=== PATIENT | male | born 1955 | race Caucasian/White ===

== ENCOUNTER 2019-11-16 13:10 | Emergency (ER) | payer MEDICARE, BC ==
[~2019-11-16] VITALS: Ht 188 cm; Wt 108.9 kg
[~2019-11-16 13:10] MED LIST: ATOR80 PO; Aspirin EC81 MG PO; GABAPENTIN600 MG PO; LEVEMIR FL100 UNIT/1 SC; METAXALONE800 M1 PO; Novolin R100 UNIT/M; PANTOPRAZOLE SO40 M2 PO; Pravachol40 MG PO
[2019-11-16] MEDS ORDERED: ATOR40TA PO (13:38)
[2019-11-16] MEDS ORDERED: Depo-Testos200 MG/ML IM (13:39)
[2019-11-16] MEDS ORDERED: DULO60 PO (13:39)
[2019-11-16] MEDS ORDERED: TIZA4 PO (13:39)
[2019-11-16 13:40] LABS: BASOPHILS ABSOLUTE AUTO 0.03 K/mm3 (0.00-0.23); BASOPHILS PERCENT AUTO 0 % (0-2); EOSINOPHILS ABSOLUTE AUTO 0.09 K/mm3 (0.00-0.68); EOSINOPHILS PERCENT AUTO 1 % (0-6); Hematocrit 44.4 % (37.0-53.0); Hemoglobin 13.8 g/dL (13.5-17.5); IMMATURE GRAN ABSOLUTE AUTO 0.01 K/mm3 (0.00-0.10); IMMATURE GRAN PERCENT AUTO 0 % (0-1); LYMPHOCYTES ABSOLUTE AUTO 1.88 K/mm3 (0.84-5.20); LYMPHOCYTES PERCENT AUTO 27 % (21-46); MONOCYTES ABSOLUTE AUTO 0.41 K/mm3 (0.16-1.47); MONOCYTES PERCENT AUTO 6 % (4-13); Mean Corpuscular HGB Conc 31.1 g/dL (31.5-36.5); Mean Corpuscular Volume 87 fL (80-100); Mean Platelet Volume 12.4 fL (9.1-12.4); NEUTROPHILS ABSOLUTE AUTO 4.52 K/mm3 (1.96-9.15); NEUTROPHILS PERCENT AUTO 65 % (41-73); Platelet Count 177 K/mm3 (150-400); RDW Coefficient Variation 13.4 % (11.7-14.2); RDW Standard Deviation 41.7 fL (35.1-46.3); Red Blood Cell Count 5.12 M/mm3 (4.30-5.90); White Blood Cell Count 6.94 K/mm3 (4.00-11.30)
[2019-11-16] MEDS ORDERED: TADA10TA PO (13:40)
[2019-11-16] MEDS ORDERED: NOVOLOG FL100 UNIT/1 SC (13:41)
[2019-11-16 13:54] LABS: International Normalized Ratio 1.04; Prothrombin Time Results 11.1 Sec (9.7-11.5)
[2019-11-16 14:03] LABS: Alanine Aminotransfer (ALT/SGP 23 U/L (12-78); Albumin, Blood 3.6 g/dL (3.4-5.0); Albumin/Globulin Ratio 0.9 (0.8-1.8); Alk Phos 85 U/L (50-136); Anion Gap 4 mmol/L (6-16); Aspartate Aminotrans (AST/SGOT 15 U/L (12-37); Bilirubin, Total 0.3 mg/dL (0.1-1.0); Blood Urea Nitrogen 15 mg/dL (8-24); Bun/Creatinine Ratio 13.4 (12.0-20.0); CO2, Blood 28 mmol/L (21-32); Calcium, Blood 9.3 mg/dL (8.5-10.1); Chloride, Blood 107 mmol/L (98-108); Creatinine, Blood 1.12 mg/dL (0.60-1.20); Globulin, Blood 3.9 g/dL (2.2-4.0); Glomerular Filtration Rate >60 (60-); Glucose, Blood 254 mg/dL (70-99); Potassium, Blood 4.8 mmol/L (3.5-5.5); Sodium, Blood 139 mmol/L (136-145); Total Protein, Blood 7.5 g/dL (6.4-8.2)
[2019-11-16] MEDS ORDERED: Plavix75 MG PO (15:48)
== END 2019-11-16 16:00 | disposition home or self-care (01) ==
LOC: ER 13:10
PROVIDERS: Emergency Medicine
DX: G45.9 Transient cerebral ischemic attack, unspecified (principal); E11.9 Type 2 diabetes mellitus without complications; I10 Essential (primary) hypertension; K21.9 Gastro-esophageal reflux disease without esophagitis; G47.30 Sleep apnea, unspecified; Z88.6 Allergy status to analgesic agent; Z79.899 Other long term (current) drug therapy; Z79.4 Long term (current) use of insulin; Z79.82 Long term (current) use of aspirin
CPT/HCPCS: 36415; 70450; 80053; 85025; 85610; 93005; 93010; 99285-25; A9270-GY

== ENCOUNTER 2019-12-27 12:25 | Emergency (ER) | payer MEDICARE, BC ==
[~2019-12-27] VITALS: Ht 188 cm; Wt 104.3 kg
[~2019-12-27 12:25] MED LIST changes: +ATOR40TA PO; +DULO60 PO; +Depo-Testos200 MG/ML IM; +NOVOLOG FL100 UNIT/1 SC; +Plavix75 MG PO; +TADA10TA PO; +TIZA4 PO
[2019-12-27 13:32] LABS: BASOPHILS ABSOLUTE AUTO 0.03 K/mm3 (0.00-0.23); BASOPHILS PERCENT AUTO 0 % (0-2); EOSINOPHILS ABSOLUTE AUTO 0.05 K/mm3 (0.00-0.68); EOSINOPHILS PERCENT AUTO 1 % (0-6); Hematocrit 46.2 % (37.0-53.0); Hemoglobin 14.5 g/dL (13.5-17.5); IMMATURE GRAN ABSOLUTE AUTO 0.04 K/mm3 (0.00-0.10); IMMATURE GRAN PERCENT AUTO 0 % (0-1); LYMPHOCYTES ABSOLUTE AUTO 1.45 K/mm3 (0.84-5.20); LYMPHOCYTES PERCENT AUTO 16 % (21-46); MONOCYTES ABSOLUTE AUTO 0.53 K/mm3 (0.16-1.47); MONOCYTES PERCENT AUTO 6 % (4-13); Mean Corpuscular HGB 26.4 pg (26.0-34.0); Mean Corpuscular HGB Conc 31.4 g/dL (31.5-36.5); Mean Corpuscular Volume 84 fL (80-100); Mean Platelet Volume 11.2 fL (9.1-12.4); NEUTROPHILS PERCENT AUTO 77 % (41-73); Platelet Count 233 K/mm3 (150-400); RDW Coefficient Variation 14.1 % (11.7-14.2); RDW Standard Deviation 43.1 fL (35.1-46.3); Red Blood Cell Count 5.49 M/mm3 (4.30-5.90)
[2019-12-27 13:48] LABS: International Normalized Ratio 1.01; Prothrombin Time Results 10.8 Sec (9.7-11.5)
[2019-12-27 13:53] LABS: Alanine Aminotransfer (ALT/SGP 35 U/L (12-78); Albumin, Blood 3.9 g/dL (3.4-5.0); Albumin/Globulin Ratio 0.9 (0.8-1.8); Alk Phos 100 U/L (50-136); Anion Gap 9 mmol/L (6-16); Aspartate Aminotrans (AST/SGOT 18 U/L (12-37); Bilirubin, Total 0.3 mg/dL (0.1-1.0); Blood Urea Nitrogen 18 mg/dL (8-24); Bun/Creatinine Ratio 20.2 (12.0-20.0); CO2, Blood 24 mmol/L (21-32); Calcium, Blood 9.6 mg/dL (8.5-10.1); Chloride, Blood 108 mmol/L (98-108); Creatinine, Blood 0.89 mg/dL (0.60-1.20); Globulin, Blood 4.2 g/dL (2.2-4.0); Glomerular Filtration Rate >60 (60-); Glucose, Blood 157 mg/dL (70-99); Potassium, Blood 4.8 mmol/L (3.5-5.5); Sodium, Blood 141 mmol/L (136-145); Total Protein, Blood 8.1 g/dL (6.4-8.2)
[2019-12-27] MEDS ORDERED: ACYC800 PO (16:17)
[2019-12-27] MEDS ORDERED: Valium5 MG PO (16:17)
[2019-12-27] MEDS ORDERED: ONDA4 PO (16:17)
== END 2019-12-27 16:39 | disposition home or self-care (01) ==
LOC: ER 12:25
PROVIDERS: Physician Assistant
DX: G51.0 Bell's palsy (principal); E11.9 Type 2 diabetes mellitus without complications; I10 Essential (primary) hypertension; K21.9 Gastro-esophageal reflux disease without esophagitis; Z88.6 Allergy status to analgesic agent; Z79.899 Other long term (current) drug therapy; Z79.4 Long term (current) use of insulin; Z79.82 Long term (current) use of aspirin; Z79.02 Long term (current) use of antithrombotics/antiplatelets; Z86.73 Personal history of transient ischemic attack (TIA), and cerebral infarction without residual deficits
CPT/HCPCS: 36415; 70450; 70551; 80053; 82947; 85025; 85610; 93005; 93010; 96374; 99284-25; J3360

== ENCOUNTER 2020-02-04 06:32 | Day surgery (SDC) | payer MEDICARE, BC ==
[~2020-02-04] VITALS: Wt 102.0 kg
[~2020-02-04 06:32] MED LIST changes: +ACYC800 PO; -ATOR40TA PO; -Aspirin EC81 MG PO; -DULO60 PO; -Depo-Testos200 MG/ML IM; -LEVEMIR FL100 UNIT/1 SC; -METAXALONE800 M1 PO; -NOVOLOG FL100 UNIT/1 SC; +ONDA4 PO; -PANTOPRAZOLE SO40 M2 PO; -TIZA4 PO; +Valium5 MG PO
--- NOTE | 2020-02-04 08:34 | NUR ---
FRANCO RN WITH [employer] IN ROOM WITH INSTRUCTIONS TO THE LINQ. PT S/O AT BEDSIDE. PT VERBALIZES UNDERSTANDING WRITTEN AND VERBAL ORDERS. PT IV DC'D. CATH INTACT. PRESSURE DSG IN PLACE. NADN. VSS. PT WILL DC TO HOME VIA S/O.
[2020-02-23] MEDS ORDERED: LEVEMIR FL100 UNIT/2 SC (13:15)
[2020-02-23] MEDS ORDERED: FLUT.05NI (13:17)
[2020-02-23] MEDS ORDERED: METAXALONE800 M1 PO (13:18)
[2020-02-23] MEDS ORDERED: DULO60 PO (13:19)
[2020-02-23] MEDS ORDERED: PANTOPRAZOLE SO40 M2 PO (13:19)
[2020-02-23] MEDS ORDERED: TIZA4 PO (13:20)
[2020-02-23] MEDS ORDERED: ASPI81CH PO (13:21)
[2020-02-23] MEDS ORDERED: PLAVIX75 MG PO (13:22)
[2020-02-23] MEDS ORDERED: GLUCOPHAGE1000 M1 PO (13:23)
[2020-02-23] MEDS ORDERED: PREGABALIN50 MG PO (13:23)
[2020-02-23] MEDS ORDERED: Pravachol40 MG PO (13:25)
[2020-02-23] MEDS ORDERED: Depo-Testos200 MG/ML IM (13:27)
[2020-02-23] MEDS ORDERED: NOVOLOG FL100 UNIT/3 SC (13:28)
[2020-02-24] MEDS ORDERED: AMLO10 PO (09:55)
[2020-02-24] MEDS ORDERED: CLOP75 PO (09:55)
== END 2020-02-04 22:36 | disposition home or self-care (01) ==
LOC: MHTC 06:32
DX: I63.9 Cerebral infarction, unspecified (principal); J45.909 Unspecified asthma, uncomplicated; E66.9 Obesity, unspecified; E11.9 Type 2 diabetes mellitus without complications; E78.5 Hyperlipidemia, unspecified; Z87.891 Personal history of nicotine dependence; Z79.82 Long term (current) use of aspirin; Z79.02 Long term (current) use of antithrombotics/antiplatelets; Z79.4 Long term (current) use of insulin; Z79.899 Other long term (current) drug therapy; Z68.29 Body mass index [BMI] 29.0-29.9, adult; I65.23 Occlusion and stenosis of bilateral carotid arteries; Z88.6 Allergy status to analgesic agent
CPT/HCPCS: 33285; 93308; C1764

== ENCOUNTER → 2020-10-23 | Outpatient (CLI) | payer MEDICARE, BC ==
[~2020-10-23] MED LIST changes: +AMLO10 PO; +ASPI81CH PO; +CLOP75 PO; +DULO60 PO; +Depo-Testos200 MG/ML IM; +FLUT.05NI; +GLUCOPHAGE1000 M1 PO; +LEVEMIR FL100 UNIT/2 SC; +METAXALONE800 M1 PO; +NOVOLOG FL100 UNIT/3 SC; +PANTOPRAZOLE SO40 M2 PO; +PLAVIX75 MG PO; +PREGABALIN50 MG PO; +TIZA4 PO
[2020-10-24 14:02] LABS: Stool Occult Bld Immuno 1 Negative (NEGATIVE)
== END ==
LOC: LAB 13:30 → LAB SHORT 13:30 → LAB FUT 10-12 14:15
PROVIDERS: Nurse Practitioner Family
DX: D64.9 Anemia, unspecified (principal)
CPT/HCPCS: 82274

== ENCOUNTER 2021-02-24 12:22 | Emergency (ER) | payer MEDICARE, BC ==
[~2021-02-24] VITALS: Ht 177.8 cm; Wt 99.8 kg
[2021-02-24 12:51] LABS: BASOPHILS ABSOLUTE AUTO 0.06 K/mm3 (0.00-0.23); BASOPHILS PERCENT AUTO 1 % (0-2); EOSINOPHILS ABSOLUTE AUTO 0.08 K/mm3 (0.00-0.68); EOSINOPHILS PERCENT AUTO 1 % (0-6); Hematocrit 38.1 % (37.0-53.0); Hemoglobin 12.1 g/dL (13.5-17.5); IMMATURE GRAN ABSOLUTE AUTO 0.04 K/mm3 (0.00-0.10); IMMATURE GRAN PERCENT AUTO 1 % (0-1); LYMPHOCYTES PERCENT AUTO 28 % (21-46); MONOCYTES ABSOLUTE AUTO 0.68 K/mm3 (0.16-1.47); MONOCYTES PERCENT AUTO 8 % (4-13); Mean Corpuscular HGB 28.3 pg (26.0-34.0); Mean Corpuscular HGB Conc 31.8 g/dL (31.5-36.5); Mean Corpuscular Volume 89 fL (80-100); Mean Platelet Volume 11.8 fL (9.1-12.4); NEUTROPHILS ABSOLUTE AUTO 5.11 K/mm3 (1.96-9.15); NEUTROPHILS PERCENT AUTO 62 % (41-73); Platelet Count 218 K/mm3 (150-400); RDW Coefficient Variation 14.6 % (11.7-14.2); RDW Standard Deviation 47.7 fL (35.1-46.3); Red Blood Cell Count 4.27 M/mm3 (4.30-5.90); White Blood Cell Count 8.27 K/mm3 (4.00-11.30)
[2021-02-24 13:05] LABS: Alanine Aminotransfer (ALT/SGP 25 U/L (12-78); Albumin, Blood 3.7 g/dL (3.4-5.0); Albumin/Globulin Ratio 1.1 (0.8-1.8); Alk Phos 66 U/L (50-136); Anion Gap 8 mmol/L (6-16); Aspartate Aminotrans (AST/SGOT 17 U/L (12-37); Bilirubin, Total 0.4 mg/dL (0.1-1.0); Blood Urea Nitrogen 19 mg/dL (8-24); Bun/Creatinine Ratio 20.2 (12.0-20.0); CO2, Blood 22 mmol/L (21-32); Calcium, Blood 9.2 mg/dL (8.5-10.1); Chloride, Blood 112 mmol/L (98-108); Creatinine, Blood 0.94 mg/dL (0.60-1.20); Globulin, Blood 3.4 g/dL (2.2-4.0); Glomerular Filtration Rate >60 (60-); Glucose, Blood 198 mg/dL (70-99); Magnesium, Blood 1.8 mg/dL (1.6-2.4); Potassium, Blood 4.2 mmol/L (3.5-5.5); Sodium, Blood 142 mmol/L (136-145); Total Protein, Blood 7.1 g/dL (6.4-8.2)
[2021-02-24] MEDS ORDERED: TRAZ50 PO (14:02)
[2021-02-24] MEDS ORDERED: BUDESONIDE EC3 M1 (14:03)
[2021-02-24] MEDS ORDERED: SUCRALFATE PO (14:03)
[2021-02-24] MEDS ORDERED: TIZA4 (14:04)
[2021-02-24 14:52] LABS: Source, Urine Clean Catch
[2021-02-24 15:03] LABS: Appearance, Urine Clear (Clear); Bilirubin, Urine Neg (Neg); Blood, Urine Neg (Neg); Color, Urine Yellow (P-Yellow); Glucose Qualitative, Urine 2+ (Neg); Ketones, Urine Neg (Neg); Leukocyte Esterase, Urine Neg (Neg); Nitrite, Urine Neg (Neg); Protein, Urine 2+ (Neg); Specific Gravity, Urine 1.015 (1.003-1.022); Urobilinogen, Urine NORM (Normal)
[2021-02-24 15:15] LABS: U Cannabinoids Screen DETECTED
[2021-02-24 15:16] LABS: U Amphetamine Screen Not Detected; U Barbituate Screen Not Detected; U Benzodiazapine Screen Not Detected; U Buprenorphine Screen Not Detected; U Cocaine Screen Not Detected; U Methadone Screen Not Detected; U Methamphetamine Screen Not Detected; U Opiates Screen Not Detected; U Oxycodone Screen Not Detected; U Phencyclidine Screen Not Detected; U Propoxyphene Screen Not Detected
[2021-02-24 15:22] LABS: Red Blood Cells, Urine Rare /hpf (0-2); Squamous Epithelial Cells Few /hpf (Few); White Blood Cells, Urine 0-2 /hpf (0-5)
[2021-02-24 15:23] LABS: Bacteria Not Seen /hpf
[2021-02-24] MEDS ORDERED: DIVA500EC PO (17:26)
== END 2021-02-24 17:39 | disposition home or self-care (01) ==
LOC: ER 12:22
PROVIDERS: Student in an Organized Health Care Education/Training Program
DX: R41.82 Altered mental status, unspecified (principal); F39 Unspecified mood [affective] disorder; E11.9 Type 2 diabetes mellitus without complications; I10 Essential (primary) hypertension; Z86.73 Personal history of transient ischemic attack (TIA), and cerebral infarction without residual deficits; Z87.891 Personal history of nicotine dependence; Z88.6 Allergy status to analgesic agent; Z88.8 Allergy status to other drugs, medicaments and biological substances; Z79.4 Long term (current) use of insulin; Z79.899 Other long term (current) drug therapy; Z79.02 Long term (current) use of antithrombotics/antiplatelets
CPT/HCPCS: 51701; 70450; 71045; 80053; 81001; 82947; 83735; 85025; 93005; 93010; 99285-25; Q3014

== ENCOUNTER 2021-07-09 03:36 | Emergency (ER) | payer MEDICARE, BC ==
[~2021-07-09] VITALS: Ht 188 cm; Wt 84.4 kg
[~2021-07-09 03:36] MED LIST changes: +BUDESONIDE EC3 M1; +DIVA500EC PO; +SUCRALFATE PO; +TIZA4; +TRAZ50 PO
== END 2021-07-09 07:50 | disposition home or self-care (01) ==
LOC: ER 03:36
DX: G89.29 Other chronic pain (principal); M54.9 Dorsalgia, unspecified; E11.9 Type 2 diabetes mellitus without complications; I10 Essential (primary) hypertension; Z87.891 Personal history of nicotine dependence; Z79.899 Other long term (current) drug therapy
CPT/HCPCS: 99283; A9270

== ENCOUNTER → 2022-04-04 | Outpatient (CLI) | payer MEDICARE, BC ==
[2022-04-04 10:32] LABS: Source, Urine Clean Catch
[2022-04-04 13:02] LABS: Appearance, Urine Clear (Clear); Bilirubin, Urine Neg (Neg); Blood, Urine Neg (Neg); Color, Urine Yellow (P-Yellow); Glucose Qualitative, Urine Neg (Neg); Ketones, Urine Neg (Neg); Leukocyte Esterase, Urine Neg (Neg); Nitrite, Urine Neg (Neg); Protein, Urine Neg (Neg); Urobilinogen, Urine NORM (Normal)
== END ==
LOC: LAB SHORT 10:00 → LAB 10:00 → LAB SHORT 10:28
PROVIDERS: Nurse Practitioner Family
DX: R31.9 Hematuria, unspecified (principal)
CPT/HCPCS: 81003

== ENCOUNTER → 2022-12-03 | Outpatient (CLI) | payer MEDICARE, BC ==
[2022-12-05 10:30] LABS: Stool Occult Bld Immuno 1 Negative (NEGATIVE)
== END ==
LOC: LAB 17:00 → LAB SHORT 17:00
PROVIDERS: Nurse Practitioner Family
DX: Z12.11 Encounter for screening for malignant neoplasm of colon (principal)
CPT/HCPCS: G0328

== ENCOUNTER → 2024-03-16 | Outpatient (CLI) | payer MEDICARE, BC ==
[~2024-03-16] MED LIST changes: +EZET10 PO; +METO50ER PO
[2024-03-23 15:43] LABS: ALBUMIN %,URINE 63.7 %; ALPHA-1 %,URINE 6.7 %; ALPHA-2 %,URINE 9.9 %; GAMMA GLOBULIN %,URINE 5.7 %; HOURS COLLECTED Random hr; TOTAL VOLUME Random mL
== END ==
LOC: LAB SHORT 12:00 → LAB 12:00
PROVIDERS: Internal Medicine Nephrology
DX: N18.30 Chronic kidney disease, stage 3 unspecified (principal); D63.1 Anemia in chronic kidney disease; N25.81 Secondary hyperparathyroidism of renal origin; E55.9 Vitamin D deficiency, unspecified; E78.00 Pure hypercholesterolemia, unspecified; R76.9 Abnormal immunological finding in serum, unspecified; R94.5 Abnormal results of liver function studies; R94.6 Abnormal results of thyroid function studies; D51.8 Other vitamin B12 deficiency anemias; D52.8 Other folate deficiency anemias; D50.9 Iron deficiency anemia, unspecified
CPT/HCPCS: 84156; 84166; 86335